=== PATIENT | female | born 1970 | race Caucasian/White ===

== ENCOUNTER 2016-12-08 10:10 | Emergency (ER) | payer MEDICARE ==
[~2016-12-08] VITALS: Ht 165.1 cm; Wt 88.0 kg
--- NOTE | 2016-12-08 10:37 | PD ---
HPI Chief Complaint: Headache Time Seen by Provider: 10:23 Travel History International Travel<30 days: No Contact w/Intl Traveler<30days: No History of Present Illness HPI 45yo F with PMH of migraine presents to the ED with c/o right sided headache that started off like her migraine headache this morning. Had episode of vomiting and usually feels better after. However, today the pain moved from her right head to around her right eye and feels her vision is becoming blurry intermittently. It would be dark, then normal again. States that there is no pain with eye movement. +Photophobia. Denies any trauma, fever, neck pain, focal weakness or numbness, chest pain, sob, abdominal pain. PFSH Social History Tobacco Use: No Allergies-Medications (Allergen,Severity, Reaction): Coded Allergies: Sulfa (Verified Allergy, Severe, 12/08/16) Reported Meds & Prescriptions Reported Meds & Active Scripts Active Acetaminophen Extra Strength (Acetaminophen) 500 Mg Tab 500 Mg PO Q6H PRN Reported Trazodone (Trazodone HCl) 50 Mg Tab 50 Mg PO HS Lamictal (Lamotrigine) 200 Mg Tab 200 Mg PO DAILY Wellbutrin Xl 24 HR (Bupropion HCl) 300 Mg Tab 300 Mg PO DAILY Hydroxyzine HCl 50 Mg Tab 50 Mg PO TID PRN Review of Systems Except as stated in HPI: all other systems reviewed are Neg Physical Exam Narrative GENERAL: 45yo F in moderate distress. SKIN: Focused skin assessment warm/dry. HEAD: Atraumatic. Normocephalic. +TTP right maxilla, right periorbital region. No ecchymoses, erythema or swelling. EYES: Pupils equal and round at 3mm bilaterally. EOMI. No scleral icterus. No injection or drainage. ENT: No nasal bleeding or discharge. Mucous membranes pink and moist. NECK: No nuchal rigidity. CARDIOVASCULAR: Regular rate and rhythm. No murmur appreciated. RESPIRATORY: No accessory muscle use. Clear to auscultation. Breath sounds equal bilaterally. GASTROINTESTINAL: Abdomen soft, non-tender, nondistended. MUSCULOSKELETAL: No obvious deformities. No clubbing. No cyanosis. No edema. NEUROLOGICAL: Awake and alert. No obvious cranial nerve deficits. Motor grossly within normal limits. Normal speech. PSYCHIATRIC: Appropriate mood and affect; insight and judgment normal. Data Data Last Documented VS Vital Signs Date Time Temp Pulse Resp B/P Pulse Ox O2 Delivery O2 Flow Rate FiO2 12/08/16 12:57 76 16 122/68 98 12/08/16 11:45 Room Air 12/08/16 10:41 98.0 Orders Ketorolac Inj (Toradol Inj) (12/08/16 10:45) Ondansetron Inj (Zofran Inj) (12/08/16 10:45) Sodium Chlor 0.9% 1000 Ml Inj (Ns 1000 M (12/08/16 10:45) Ed Poc Ultrasound (12/08/16 ) Ct Brain W/O Iv Contrast(Rout) (12/08/16 ) Ed Urine Pregnancytest Poc (12/08/16 11:02) MDM Medical Decision Making Medical Screen Exam Complete: Yes Emergency Medical Condition: Yes Interpretation(s) Last Impressions Head CT 12/08/16 0000 Signed Impressions: Service Date/Time: Thursday, December 08, 2016 11:21 - CONCLUSION: Unremarkable study. K. Ashwin Leal MD Differential Diagnosis Migraine headache vs. tension headache vs. glaucoma (unlikely) vs. retinal detachment Narrative Course 45yo F with right sided headache, nausea and right eye pain. Impression is more migraine headache. US eye showed mildly increased optic nerve diameter so CT brain was ordered. CT brain negative. Pt given zofran, NS IVF and toradol 30mg IV. Pt reevaluated at bedside and states headache and eye pain has completely resolved. Denies any visual changes. Pt feels good and wants to go home. Return precautions given. Procedures Procedure Narrative Emergency department ocular ultrasound was performed with patient consent. Linear probe was used in the transverse and sagittal views of the right orbit without evidence of retinal detachment, vitreous hemorrhage, or lens dislocation. Optic nerve diameter is mildly increased at 5.4mm. Diagnosis Primary Impression: Migraine headache Qualified Code: G43.909 - Migraine without status migrainosus, not intractable , unspecified migraine type Patient Instructions: General Instructions Departure Forms: Tests/Procedures Additional Instructions: Please follow up with your PMD in 3-7 days. Return to the ED if symptoms worsen. Med/Other Pt SpecificInfo: Prescription(s) given Scripts Acetaminophen (Acetaminophen Extra Strength)500 Mg [id number] Mg PO Q6H PRN (PAIN SCALE 1 TO 4) #20 TAB Ref 0 Prov:Guadalupe,Raina DO 12/08/16 Disposition: 01 DISCHARGE HOME Condition: Stable Raina Guadalupe DO Dec 08, 2016 10:37
[2016-12-08 10:41] VITALS: BP 122/66; PULSE 78; RESP 16; TEMP 98; O2SAT 99
[2016-12-08] MEDS ORDERED: KETOROLAC TROMETHAMINE 30 MG/ML (IVP) VIAL IV PUSH ONE (10:45)
[2016-12-08] MEDS ORDERED: SODIUM CHLOR 0.9% 1000 ML INJ 1,000 ML IV ONE (10:45)
[2016-12-08] MEDS ORDERED: ONDANSETRON HCL 4 MG/2 ML VIAL IV PUSH ONE (10:45)
[2016-12-08] MEDS ORDERED: TRAZ50TA12 PO (11:22)
[2016-12-08] MEDS ORDERED: HYDR50TA94 PO (11:22)
[2016-12-08] MEDS ORDERED: LAMI200T PO (11:22)
[2016-12-08] MEDS ORDERED: WELLTAB39 PO (11:22)
[2016-12-08 11:45] VITALS: BP 106/54; PULSE 61; RESP 16; O2SAT 99
--- NOTE | 2016-12-08 11:47 | RADHPO ---
EXAM DATE/TIME: 12/08/2016 11:21 [facility] COMPARISON: No previous studies available for comparison. INDICATIONS : Cephalgia. RADIATION DOSE: 67.65 CTDIvol (mGy) MEDICAL HISTORY : Migraines. SURGICAL HISTORY : Tubal ligation. ENCOUNTER: Initial ACUITY: 1 day PAIN SCALE: 8/10 LOCATION: Right cranial TECHNIQUE: Multiple contiguous axial images were obtained of the head. Using automated exposure control and adj ustment of the mA and/or kV according to patient size, radiation dose was kept as low as reasonably a chievable to obtain optimal diagnostic quality images. FINDINGS: There is no evidence for intracranial hemorrhage, mass effect, mass lesions, edema, or extra-axial fl uid collections. The visualized bony structures appear intact. The ventricles are normal size for t he patient's age. There are no signs of acute infarction for technique. CONCLUSION: Unremarkable study. Ioana Leal MD on December 08, 2016 at 11:43 Board Certified Radiologist. This report was verified electronically.
[2016-12-08 12:00] VITALS: RESP 16
[2016-12-08] MEDS ORDERED: ACET500T36 PO (12:53)
[2016-12-08 12:57] VITALS: BP 122/68
[2016-12-11] MEDS ORDERED: TRAZ50TA12 PO (14:06)
[2017-01-09] MEDS ORDERED: TOPI1TAB97 PO (16:15)
[2017-01-09] MEDS ORDERED: TRAZ50TA12 PO (16:15)
[2017-01-09] MEDS ORDERED: LAMI200T PO (16:16)
[2017-01-09] MEDS ORDERED: HYDR50TA94 PO (16:16)
[2017-01-09] MEDS ORDERED: WELLTAB39 PO (16:16)
== END 2016-12-08 13:02 | disposition home or self-care (01) ==
LOC: PHED 10:10
DX: G43.909 Migraine, unspecified, not intractable, without status migrainosus (principal); H57.11 Ocular pain, right eye; H53.8 Other visual disturbances
CPT/HCPCS: 70450; 84703; 96361; 96374; 96375; 99284; J1885; J2405; J7030

== ENCOUNTER 2017-12-06 15:41 | Emergency (ER) | payer MEDICARE ==
[~2017-12-06] VITALS: Ht 162.6 cm; Wt 86.4 kg
[~2017-12-06 15:41] MED LIST: BUSP10TA PO; CLOM50CA PO; HYDR50TA94 PO; LAMI200T PO; WELLTAB39 PO
--- NOTE | 2017-12-06 16:05 | RADRPT ---
EXAM DATE/TIME: 12/06/2017 16:00 [facility] COMPARISON: No previous studies available for comparison. INDICATIONS : Chest pain. MEDICAL HISTORY : None. SURGICAL HISTORY : None. ENCOUNTER: Initial ACUITY: 1 month PAIN SCORE: 4/10 LOCATION: Bilateral chest FINDINGS: PA and lateral views of the chest demonstrate the lungs to be symmetrically aerated without evidence of mass, infiltrate or effusion. The cardiomediastinal contours are unremarkable. Osseous structure s are intact. CONCLUSION: The lungs are clear. Heart size is normal. Chau Velazquez MD on December 06, 2017 at 16:02 Board Certified Radiologist. This report was verified electronically.
[2017-12-06 16:48] VITALS: BP 129/66; PULSE 77; RESP 18; O2SAT 98
[2017-12-06 16:53] LABS: AUTOMATED NEUTROPHIL # 3.3 TH/MM3 (1.8-7.7); BASOPHIL % 0.6 % (0.0-2.0); EOSINOPHIL # 0.2 TH/MM3 (0-0.4); EOSINOPHIL % 3.2 % (0.0-4.0); HEMATOCRIT 43.2 % (35.0-46.0); HEMOGLOBIN 14.6 GM/DL (11.6-15.3); LYMPH % 35.9 % (9.0-44.0); LYMPHOCYTE # 2.3 TH/MM3 (1.0-4.8); MEAN CELL VOLUME 89.8 FL (80.0-100.0); MEAN CORPUSCULAR HEMOGLOBIN 30.3 PG (27.0-34.0); MEAN CORPUSCULAR HGB CONC 33.7 % (32.0-36.0); MEAN PLATELET VOLUME 9.4 FL (7.0-11.0); MONO % 8.4 % (0.0-8.0); MONOCYTE # 0.5 TH/MM3 (0-0.9); NEUT % 51.9 % (16.0-70.0); PLATELET COUNT 253 TH/MM3 (150-450); RED BLOOD COUNT 4.81 MIL/MM3 (4.00-5.30); RED CELL DISTRIBUTION WIDTH 13.7 % (11.6-17.2); WHITE BLOOD COUNT 6.3 TH/MM3 (4.0-11.0)
[2017-12-06] MEDS ORDERED: LURA20TA PO (16:56)
[2017-12-06] MEDS ORDERED: TRAZ50TA12 PO (16:56)
[2017-12-06] MEDS ORDERED: BUPR150XL PO (16:56)
[2017-12-06 17:22] LABS: BICARBONATE 26.6 MEQ/L (21.0-32.0); BLOOD UREA NITROGEN 11 MG/DL (7-18); CALCIUM 8.9 MG/DL (8.5-10.1); CHLORIDE 106 MEQ/L (98-107); CREATININE 0.98 MG/DL (0.50-1.00); GLOMERULAR FILTRATION RATE 61 ML/MIN (>89); GLUCOSE,RANDOM 85 MG/DL (74-106); SODIUM (NA) 139 MEQ/L (136-145)
[2017-12-06 17:27] LABS: TROPONIN I LESS THAN 0.02 NG/ML (0.02-0.05)
--- NOTE | 2017-12-06 17:30 | PD ---
HPI Chief Complaint: Chest Pain Time Seen by Provider: 16:53 Travel History International Travel<30 days: No Contact w/Intl Traveler<30days: No Traveled to known affect area: No History of Present Illness HPI 46y female with a history of anxiety, borderline personality disorder, presents to the ED for evaluation of chest pain that has worsened over the last few days. Says she has had similar chest pain for months however, has been in short intervals and not intense. Says she thinks that may be gas or indigestion however, reported recent episodes have been lasting longer and become more intense. Says that she was sitting today when she began having the pain that "doubled her over". Patient describes her pain has been in the lower right midsternal region that radiates to the left anterior chest associated with shortness of breath and diaphoresis. She denies any nausea or vomiting. Says that this episode today lasted approximately 5 minutes before symptoms began resolving. Says currently her pain is 4/10. Says that palpation of her chest somewhat reproduces pain. Says she smokes tobacco. Denies alcohol use. Denies history of hyperlipidemia or hypertension. Says her father had a pacemaker placed in his 20s and he dies in his 60s of a heart problem. She saw a operator cavity pump approximately 8 years ago and had an echocardiogram. She admits that she has had panic attacks and anxiety that result in chest pain but says this is different than her previous episodes. PFSH Past Medical History Anxiety: Yes Depression: Yes Cardiovascular Problems: Yes (TRICUSPID AND MITRAL VALVE REGURGITATION) Headaches: Yes Psychiatric: Yes (personality disorder, PTSD ) Migraines: Yes Tetanus Vaccination: Unknown Influenza Vaccination: Yes ?: Not LMP: 12/06/17 Tubal Ligation: Yes Past Surgical History Tonsillectomy: Yes Social History Alcohol Use: Yes (seldom, if so wine or mix drinks) Tobacco Use: Yes Substance Use: Yes (MARIJUANA) Allergies-Medications (Allergen,Severity, Reaction): Coded Allergies: Sulfa (Sulfonamide Antibiotics) (Unverified Allergy, Severe, 04/04/17) lithium (Unverified Allergy, Unknown, 04/04/17) OCCULAR PRESSURE CAUSING BLINDNESS Reported Meds & Prescriptions Reported Meds & Active Scripts Active Lamictal (Lamotrigine) 200 Mg Tab 200 Mg PO DAILY Hydroxyzine HCl 50 Mg Tab 50 Mg PO TID PRN Reported Trazodone (Trazodone HCl) 50 Mg Tab 100 Mg PO HS Latuda (Lurasidone) 20 Mg Tab 20 Mg PO DAILY Wellbutrin Xl 24 HR (Bupropion HCl) 150 Mg Tab 75 Mg PO DAILY Review of Systems Except as stated in HPI: all other systems reviewed are Neg Physical Exam Narrative GENERAL: Well-developed, well-nourished no apparent distress SKIN: Focused skin assessment warm/dry. HEAD: Atraumatic. Normocephalic. EYES: Pupils equal and round. No scleral icterus. No injection or drainage. ENT: No nasal bleeding or discharge. Mucous membranes pink and moist. NECK: Trachea midline. No JVD. CARDIOVASCULAR: Regular rate and rhythm. No murmur appreciated. RESPIRATORY: No accessory muscle use. Clear to auscultation. Breath sounds equal bilaterally. GASTROINTESTINAL: Abdomen soft, non-tender, nondistended. Hepatic and splenic margins not palpable. MUSCULOSKELETAL: No obvious deformities. No clubbing. No cyanosis. No edema. Right midsternal chest wall tender to palpation NEUROLOGICAL: Awake and alert. No obvious cranial nerve deficits. Motor grossly within normal limits. Normal speech. PSYCHIATRIC: Appropriate mood and affect; insight and judgment normal. Data Data Last Documented VS Vital Signs Date Time Temp Pulse Resp B/P (MAP) Pulse Ox O2 Delivery O2 Flow Rate FiO2 12/06/17 18:15 73 18 117/71 (86) 97 12/06/17 16:48 Room Air Orders Orders Electrocardiogram (12/06/17 15:44) Complete Blood Count With Diff (12/06/17 15:44) Basic Metabolic Panel (Bmp) (12/06/17 15:44) Ckmb (Isoenzyme) Profile (12/06/17 15:44) Troponin I (12/06/17 15:44) Iv Access Insert/Monitor (12/06/17 15:44) Ecg Monitoring (12/06/17 15:44) Oxygen Administration (12/06/17 15:44) Oximetry (12/06/17 15:44) Chest, Pa & Lat (12/06/17 15:44) Ed Discharge Order (12/06/17 17:52) Labs Laboratory Tests Test 12/06/17 15:57 White Blood Count 6.3 TH/MM3 Red Blood Count 4.81 MIL/MM3 Hemoglobin 14.6 GM/DL Hematocrit 43.2 % Mean Corpuscular Volume 89.8 FL Mean Corpuscular Hemoglobin 30.3 PG Mean Corpuscular Hemoglobin Concent 33.7 % Red Cell Distribution Width 13.7 % Platelet Count 253 TH/MM3 Mean Platelet Volume 9.4 FL Neutrophils (%) (Auto) 51.9 % Lymphocytes (%) (Auto) 35.9 % Monocytes (%) (Auto) 8.4 % Eosinophils (%) (Auto) 3.2 % Basophils (%) (Auto) 0.6 % Neutrophils # (Auto) 3.3 TH/MM3 Lymphocytes # (Auto) 2.3 TH/MM3 Monocytes # (Auto) 0.5 TH/MM3 Eosinophils # (Auto) 0.2 TH/MM3 Basophils # (Auto) 0.0 TH/MM3 CBC Comment DIFF FINAL Differential Comment Blood Urea Nitrogen 11 MG/DL Creatinine 0.98 MG/DL Random Glucose 85 MG/DL Calcium Level 8.9 MG/DL Sodium Level 139 MEQ/L Potassium Level 3.7 MEQ/L Chloride Level 106 MEQ/L Carbon Dioxide Level 26.6 MEQ/L Anion Gap 6 MEQ/L Estimat Glomerular Filtration Rate 61 ML/MIN Total Creatine Kinase 42 U/L Troponin I LESS THAN 0.02 NG/ML MDM Medical Decision Making Medical Screen Exam Complete: Yes Emergency Medical Condition: Yes Differential Diagnosis Atypical chest pain, ACS, angina, Narrative Course 46y female with a history of anxiety, borderline personality disorder, presents to the ED for evaluation of chest pain that has worsened over the last few days. Says she has had similar chest pain for months however, has been in short intervals and not intense. Says she thinks that may be gas or indigestion however, reported recent episodes have been lasting longer and become more intense. Says that she was sitting today when she began having the pain that "doubled her over". Patient describes her pain has been in the lower right midsternal region that radiates to the left anterior chest associated with shortness of breath and diaphoresis. She denies any nausea or vomiting. Says that this episode today lasted approximately 5 minutes before symptoms began resolving. Says currently her pain is 4/10. Says that palpation of her chest somewhat reproduces pain. Says she smokes tobacco. Denies alcohol use. Denies history of hyperlipidemia or hypertension. Says her father had a pacemaker placed in his 20s and he dies in his 60s of a heart problem. She saw a operator cavity pump approximately 8 years ago and had an echocardiogram. She admits that she has had panic attacks and anxiety that result in chest pain but says this is different than her previous episodes. Pt took a BASA this morning at the onset of her pain. Vital signs stable. EKG shows sinus rhythm at 70 bpm without STEMI changes. Chest x-ray without acute process. Cardiac enzymes negative. Patient is reassured. Patient states that she feels much better after having labs and chest x-ray completed today. Based off the heart score and other risk factors, patient has a very low risk of having an ACS episode. I did recommend she follow-up with her primary care physician and operator cavity pump for further treatment and evaluation. I spoke with my attending about this patient as well and she agreed that pt is stable for discharge for outpatient follow up. Advised that she should continue her aspirin daily. Patient was pain-free upon departure from the emergency department today. Diagnosis Primary Impression: Atypical chest pain Referrals: Paving Foreman Additional Instructions: Continue to take aspirin daily. Follow-up with a operator cavity pump within 1-2 weeks. If your symptoms persist or worsen return to the emergency department. Disposition: 01 DISCHARGE HOME Condition: Stable Tricia Younger Dec 06, 2017 17:30
--- NOTE | 2017-12-06 17:56 | PD ---
Physical Exam Date Seen by Provider: Dec 06, 2017 Narrative Patient presents for the evaluation of chest pain. Please see REBECA Lyonss H&P for full details. Data Data Last Documented VS Vital Signs Date Time Temp Pulse Resp B/P (MAP) Pulse Ox O2 Delivery O2 Flow Rate FiO2 12/06/17 16:48 77 18 129/66 (87) 98 Room Air Orders Orders Electrocardiogram (12/06/17 15:44) Complete Blood Count With Diff (12/06/17 15:44) Basic Metabolic Panel (Bmp) (12/06/17 15:44) Ckmb (Isoenzyme) Profile (12/06/17 15:44) Troponin I (12/06/17 15:44) Iv Access Insert/Monitor (12/06/17 15:44) Ecg Monitoring (12/06/17 15:44) Oxygen Administration (12/06/17 15:44) Oximetry (12/06/17 15:44) Chest, Pa & Lat (12/06/17 15:44) Ed Discharge Order (12/06/17 17:52) Labs Laboratory Tests Test 12/06/17 15:57 White Blood Count 6.3 TH/MM3 Red Blood Count 4.81 MIL/MM3 Hemoglobin 14.6 GM/DL Hematocrit 43.2 % Mean Corpuscular Volume 89.8 FL Mean Corpuscular Hemoglobin 30.3 PG Mean Corpuscular Hemoglobin Concent 33.7 % Red Cell Distribution Width 13.7 % Platelet Count 253 TH/MM3 Mean Platelet Volume 9.4 FL Neutrophils (%) (Auto) 51.9 % Lymphocytes (%) (Auto) 35.9 % Monocytes (%) (Auto) 8.4 % Eosinophils (%) (Auto) 3.2 % Basophils (%) (Auto) 0.6 % Neutrophils # (Auto) 3.3 TH/MM3 Lymphocytes # (Auto) 2.3 TH/MM3 Monocytes # (Auto) 0.5 TH/MM3 Eosinophils # (Auto) 0.2 TH/MM3 Basophils # (Auto) 0.0 TH/MM3 CBC Comment DIFF FINAL Differential Comment Blood Urea Nitrogen 11 MG/DL Creatinine 0.98 MG/DL Random Glucose 85 MG/DL Calcium Level 8.9 MG/DL Sodium Level 139 MEQ/L Potassium Level 3.7 MEQ/L Chloride Level 106 MEQ/L Carbon Dioxide Level 26.6 MEQ/L Anion Gap 6 MEQ/L Estimat Glomerular Filtration Rate 61 ML/MIN Total Creatine Kinase 42 U/L Troponin I LESS THAN 0.02 NG/ML MDM Supervised Visit with ABRIL: Yes Interpretation(s) EKG shows a normal sinus rhythm with no acute ischemic change. Narrative Course I, Dr. Lutz, have reviewed the advance practice practitioner's documentation and am in agreement, met with the patient face to face, made the diagnosis, and the medical decision making was done by me. *My assessment and Findings: Patient is awake and alert and in no distress. CBC & BMP Diagram 12/06/17 15:57 Calcium Level 8.9 Troponin less than 0.02 Please see Tricia Younger PA-C's note for further details, lab and radiology results, final diagnosis and disposition. Diagnosis Primary Impression: Atypical chest pain Referrals: Cryogenics Engineer Additional Instruction: Continue to take aspirin daily. Follow-up with a metal burrer within 1-2 weeks. If your symptoms persist or worsen return to the emergency department. Disposition: 01 DISCHARGE HOME Condition: Stable Sejal Lutz MD Dec 06, 2017 17:56
[2017-12-06 18:15] VITALS: BP 117/71
--- NOTE | 2017-12-08 09:18 | EKG ---
Date Performed: 12/06/2017 Time Performed: 15:48:06 PTAGE: 46 years EKG: Sinus rhythm WITH SINUS ARRHYTHMIA NONSPECIFIC T-WAVE ABNORMALITY BORDERLINE ECG NO PREVIOUS TRACING DOCTOR: Ian Tirado Interpretating Date/Time 12/08/2017 09:13:06
== END 2017-12-06 18:16 | disposition home or self-care (01) ==
LOC: NEPC 15:41
DX: R07.89 Other chest pain (principal); R06.02 Shortness of breath; R61 Generalized hyperhidrosis; R94.31 Abnormal electrocardiogram [ECG] [EKG]; F41.8 Other specified anxiety disorders; F60.3 Borderline personality disorder; Z72.0 Tobacco use; Z86.79 Personal history of other diseases of the circulatory system; Z86.69 Personal history of other diseases of the nervous system and sense organs; Z86.59 Personal history of other mental and behavioral disorders
CPT/HCPCS: 71046; 80048; 82550; 84484; 85025; 93005; 99285